=== PATIENT | female | born 1995 | race American Indian/Alaskan Native ===

== ENCOUNTER 2017-07-08 18:39 | Emergency (ER) | payer BC, MEDICAID ==
--- NOTE | 2017-07-08 20:04 | EDM.PDOC ---
ED HPI GENERAL MEDICAL PROBLEM - General Chief Complaint: ENT Problem Stated Complaint: SORE THROAT AND COUGH Time Seen by Provider: 07/08/17 19:30 Source of Information: Reports: Patient History Limitations: Reports: No Limitations - History of Present Illness INITIAL COMMENTS - FREE TEXT/NARRATIVE: This is a 22-year-old female. For the last couple of days or 3 days she's been having a sore throat and a mild cough that seems to be getting worse. She comes to the ER for evaluation. She does have a history of strep throat when she was a child but nothing recent. The cough is fairly nonproductive to seems to be a deep dry tachycardia-type cough. She's had no fever no chills no nausea no vomiting. She denies abdominal pain denies any chest pain and she's had no urinary symptoms. Throat Pain Score (Numeric/FACES): 7 - Related Data Allergies Allergy/AdvReac Type Severity Reaction Status Date / Time amoxicillin [Amoxicillin] Allergy Hives Verified 01/13/14 18:48 Home Meds: Home Meds Azithromycin [Zithromax] 250 mg PO DAILY #6 tablet 07/08/17 [Rx] Past Medical History - Past Health History Medical/Surgical History: Denies Medical/Surgical History Social & Family History - Family History Family Medical History: Noncontributory - Tobacco Use Smoking Status *Q: Never Smoker Second Hand Smoke Exposure: No - Alcohol Use Days Per Week of Alcohol Use: 1 Number of Drinks Per Day: 1 Total Drinks Per Week: 1 - Recreational Drug Use Recreational Drug Use: No ED ROS ENT - Review of Systems Review Of Systems: See Below Constitutional: Denies: Fever, Chills HEENT: Reports: Rhinitis, Throat Pain Respiratory: Reports: Cough. Denies: Shortness of Breath, Wheezing Cardiovascular: Reports: No Symptoms Endocrine: Reports: No Symptoms GI/Abdominal: Reports: No Symptoms : Reports: No Symptoms Musculoskeletal: Reports: No Symptoms Skin: Reports: No Symptoms Neurological: Reports: No Symptoms Psychiatric: Reports: No Symptoms Hematologic/Lymphatic: Reports: No Symptoms ED EXAM, ENT - Physical Exam Exam: See Below Exam Limited By: No Limitations General Appearance: Alert, WD/WN, No Apparent Distress Eye Exam: Bilateral Eye: Normal Inspection Ears: Normal External Exam, Normal Canal, Normal TMs Nose: Normal Inspection, Clear Rhinorrhea, Nasal Discharge Mouth/Throat: Normal Inspection, Tonsillar Erythema, Tonsillar Swelling. No: Tonsillar Exudates Head: Normocephalic Neck: Supple Respiratory/Chest: No Respiratory Distress, Lungs Clear, Normal Breath Sounds Cardiovascular: Regular Rate, Rhythm, No Murmur GI/Abdominal: Soft Back: Full Range of Motion Extremities: Normal Inspection, Normal Range of Motion, Non-Tender Neurological: Alert, Oriented Psychiatric: Normal Affect, Normal Mood Skin: Warm, Dry Course - Vital Signs Last Recorded V/S: Last Vital Signs Temp 97.8 F 07/08/17 19:13 Pulse 101 H 07/08/17 19:13 Resp 16 07/08/17 19:13 BP 118/88 07/08/17 19:13 Pulse Ox 95 07/08/17 19:13 - Orders/Labs/Meds Orders: Active Orders 24 hr Category Date Time Status CULTURE STREP A CONFIRMATION [RM] Stat Lab 07/08/17 19:15 Results STREP SCRN A RAPID W CULT CONF [] Stat Lab 07/08/17 19:15 Results - Re-Assessments/Exams Free Text/Narrative Re-Assessment/Exam: 07/08/17 21:10 I spoke to the mother regarding the negative strep test Departure - Departure Time of Disposition: 21:11 Disposition: Home, Self-Care 01 Condition: Good Clinical Impression: Acute pharyngitis Qualifiers: Pharyngitis/tonsillitis etiology: unspecified etiology Qualified Code(s): J02.9 - Acute pharyngitis, unspecified Acute bronchitis Qualifiers: Bronchitis organism: unspecified organism Qualified Code(s): J20.9 - Acute bronchitis, unspecified - Discharge Information Prescriptions: Azithromycin [Zithromax] 250 mg PO DAILY #6 tablet Forms: ED Department Discharge Additional Instructions: Take the antibiotics faithfully until they're finished, follow-up with your family doctor later this week for recheck, drink lots of fluids. Avoid sodas and sugar since it'll make her sore throat worse, return to the ER if needed - My Orders Last 24 Hours: My Active Orders 07/08/17 19:15 CULTURE STREP A CONFIRMATION [RM] Stat STREP SCRN A RAPID W CULT CONF [RM] Stat - Assessment/Plan Last 24 Hours: My Active Orders 07/08/17 19:15 CULTURE STREP A CONFIRMATION [RM] Stat STREP SCRN A RAPID W CULT CONF [RM] Stat
== END 2017-07-08 21:28 | disposition home or self-care (01) ==
LOC: JD.ED 18:39
DX: J02.9 Acute pharyngitis, unspecified (principal); J20.9 Acute bronchitis, unspecified; Z88.1 Allergy status to other antibiotic agents
CPT/HCPCS: 87081; 87430; 99283

== ENCOUNTER 2017-12-26 22:30 | Emergency (ER) | payer BC ==
[2017-12-26] MEDS ORDERED: Sodium Chloride 0.9% 1,000 ML IV ONE (23:02)
[2017-12-26] MEDS ORDERED: Loperamide 2 MG Cap PO STA (23:02)
[2017-12-26] MEDS ORDERED: Ondansetron 4 MG/2 ML SDV IVPUSH ONE (23:02)
[2017-12-26] MEDS ORDERED: Loperamide 2 MG Cap ONE (23:17)
--- NOTE | 2017-12-26 23:27 | EDM.PDOC ---
ED HPI GENERAL MEDICAL PROBLEM - General Chief Complaint: Gastrointestinal Problem Stated Complaint: vomiting Time Seen by Provider: 12/26/17 22:49 Source of Information: Reports: Patient, Family () History Limitations: Reports: No Limitations - History of Present Illness INITIAL COMMENTS - FREE TEXT/NARRATIVE: The patient states that she developed nausea and watery diarrhea around 02:00 this morning, then emesis at 02;30, 08:15, and 21:00 tonight. She reports body aches and abdominal cramps, and states that she feels feverish, although she has not checked her temperature, and is afebrile here in the ED. She denies any urinary symptoms. No recent lightheadedness. The patient states that she took ibuprofen around noon, but has not taken any other medications since. The patient states that she had some sour cream yesterday that had been left in her car for 1 day, however, others ate the sour cream as well, and none of them are similarly ill. No recent travel. No recent antibiotics. No prior similar symptoms. 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 The patient states that she has a PCP, but does not recall her name. Generalized Pain Score (Numeric/FACES): 7 - Related Data Allergies Allergy/AdvReac Type Severity Reaction Status Date / Time amoxicillin [Amoxicillin] Allergy Hives Verified 12/26/17 22:33 Home Meds: Home Meds Ondansetron [Zofran ODT] 1 tab PO Q8H PRN #10 tab.dis 12/27/17 [Rx] Past Medical History Endocrine/Metabolic History: Reports: Obesity/BMI 30+ - Past Surgical History HEENT Surgical History: Reports: Oral Surgery (Dental surgery as a child) Social & Family History - Family History Family Medical History: Noncontributory - Tobacco Use Smoking Status *Q: Never Smoker Second Hand Smoke Exposure: No - Alcohol Use Alcohol Use History: Yes Days Per Week of Alcohol Use: 1 Number of Drinks Per Day: 1 Total Drinks Per Week: 1 Alcohol Use Frequency: Socially - Recreational Drug Use Recreational Drug Use: No - Living Situation & Occupation Living situation: Reports: , with Spouse, with Family (4 kids) Occupation: Employed (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 ED EXAM, GI/ABD - Physical Exam Exam: See Below Exam Limited By: No Limitations General Appearance: Alert, WD/WN, No Apparent Distress Eyes: Bilateral: Normal Appearance, EOMI Ears: Normal External Exam, Hearing Grossly Normal Nose: Normal Inspection, No Blood Throat/Mouth: Normal Inspection, Normal Lips, Normal Voice, No Airway Compromise Head: Atraumatic, Normocephalic Neck: Normal Inspection, Full Range of Motion Respiratory/Chest: No Respiratory Distress, Lungs Clear, Normal Breath Sounds, No Accessory Muscle Use Cardiovascular: Normal Peripheral Pulses, Regular Rate, Rhythm, No Gallop, No JVD, No Murmur, No Rub GI/Abdominal Exam: Normal Bowel Sounds, Soft, No Organomegaly, No Distention, No Abnormal Bruit, No Mass, Tender (Mild, diffuse/generalized, non-focal), Other (Obese) (Female) Exam: Deferred Rectal (Female) Exam: Deferred Back Exam: Normal Inspection, Full Range of Motion, NT Extremities: Normal Inspection, Normal Range of Motion, No Pedal Edema, Normal Capillary Refill Neurological: Alert, Oriented, Normal Cognition, No Motor/Sensory Deficits Psychiatric: Normal Affect Skin Exam: Warm, Dry, Intact, Normal Color, No Rash Course - Vital Signs Last Recorded V/S: Last Vital Signs Temp 36.7 C 12/26/17 22:33 Pulse 114 H 12/26/17 22:33 Resp 18 12/26/17 22:33 BP 116/73 12/26/17 22:33 Pulse Ox 100 12/26/17 22:33 Orthostatic Blood Pressure [ 104/70 Standing] Orthostatic Blood Pressure [ 116/73 Supine] - Orders/Labs/Meds Orders: Active Orders 24 hr Category Date Time Status CULTURE STOOL + SHIGATOX [RM] Stat Lab 12/26/17 23:51 Ordered HCG QUALITATIVE,URINE [URCHEM] Stat Lab 12/27/17 01:16 Ordered NOROVIRUS, RT-PCR Stat Lab 12/26/17 23:37 Received ROTAVIRUS DIRECT ANTIGEN STOOL [OP] Stat Lab 12/26/17 23:51 COMP UA W/MICROSCOPIC [URIN] Stat Lab 12/27/17 01:16 Ordered WBC, STOOL [OP] Stat Lab 12/26/17 23:51 COMP Labs: Laboratory Tests 12/26/17 12/26/17 12/27/17 Range/Units 22:50 22:50 01:16 WBC 12.12 H (3.98-10.04) K/mm3 RBC 4.90 (3.98-5.22) M/mm3 Hgb 13.7 (11.2-15.7) gm/L Hct 42.9 (34.1-44.9) % MCV 87.6 (79.4-94.8) fl MCH 28.0 (25.6-32.2) pg MCHC 31.9 L (32.2-35.5) g/dl RDW Std Deviation 43.4 (36.4-46.3) fL Plt Count 364 (182-369) K/mm3 MPV 10.4 (9.4-12.3) fl Neutrophils % (Manual) 65 H (40-60) % Band Neutrophils % 0 (0-10) % Lymphocytes % (Manual) 16 L (20-40) % Atypical Lymphs % 0 % Monocytes % (Manual) 3 (2-10) % Eosinophils % (Manual) 16 H (0.7-5.8) % Basophils % (Manual) 0 L (0.1-1.2) Platelet Estimate Adequate RBC Morph Comment Normal Sodium 136 (136-145) mEq/L Potassium 3.3 L (3.5-5.1) mEq/L Chloride 102 (98-107) mEq/L Carbon Dioxide 22 (21-32) mEq/L Anion Gap 15.3 H (5-15) BUN 7 (7-18) mg/dL Creatinine 0.7 (0.55-1.02) mg/dL Est Cr Clr Drug Dosing 130.63 mL/min Estimated GFR (MDRD) > 60 (>60) mL/min BUN/Creatinine Ratio 10.0 L (14-18) Glucose 108 H (74-106) mg/dL Calcium 9.0 (8.5-10.1) mg/dL Magnesium 1.6 L (1.8-2.4) mg/dl Total Bilirubin 0.6 (0.2-1.0) mg/dL AST 24 (15-37) U/L ALT 33 (14-59) U/L Alkaline Phosphatase 166 H (46-116) U/L Total Protein 8.4 H (6.4-8.2) g/dl Albumin 3.7 (3.4-5.0) g/dl Globulin 4.7 gm/dL Albumin/Globulin Ratio 0.8 L (1-2) Lipase 74 (73-393) U/L Urine Color Yellow (Yellow) Urine Appearance Clear (Clear) Urine pH 5.5 (5.0-8.0) Ur Specific Jackson > or = 1.030 (1.005-1.030) Urine Protein Negative (Negative) Urine Glucose (UA) Negative (Negative) Urine Ketones 1+ H (Negative) Urine Occult Blood Negative (Negative) Urine Nitrite Negative (Negative) Urine Bilirubin Negative (Negative) Urine Urobilinogen 0.2 (0.2-1.0) Ur Leukocyte Esterase Negative (Negative) Urine RBC 0-5 (0-5) /hpf Urine WBC 5-10 H (0-5) /hpf Ur Epithelial Cells 5-10 H (0-5) /hpf Urine Bacteria Moderate H (FEW) /hpf Urine Mucus Few (FEW) /hpf Urine HCG, Qual (NEGATIVE) 12/27/17 Range/Units 01:16 WBC (3.98-10.04) K/mm3 RBC (3.98-5.22) M/mm3 Hgb (11.2-15.7) gm/L Hct (34.1-44.9) % MCV (79.4-94.8) fl MCH (25.6-32.2) pg MCHC (32.2-35.5) g/dl RDW Std Deviation (36.4-46.3) fL Plt Count (182-369) K/mm3 MPV (9.4-12.3) fl Neutrophils % (Manual) (40-60) % Band Neutrophils % (0-10) % Lymphocytes % (Manual) (20-40) % Atypical Lymphs % % Monocytes % (Manual) (2-10) % Eosinophils % (Manual) (0.7-5.8) % Basophils % (Manual) (0.1-1.2) Platelet Estimate RBC Morph Comment Sodium (136-145) mEq/L Potassium (3.5-5.1) mEq/L Chloride (98-107) mEq/L Carbon Dioxide (21-32) mEq/L Anion Gap (5-15) BUN (7-18) mg/dL Creatinine (0.55-1.02) mg/dL Est Cr Clr Drug Dosing mL/min Estimated GFR (MDRD) (>60) mL/min BUN/Creatinine Ratio (14-18) Glucose (74-106) mg/dL Calcium (8.5-10.1) mg/dL Magnesium (1.8-2.4) mg/dl Total Bilirubin (0.2-1.0) mg/dL AST (15-37) U/L ALT (14-59) U/L Alkaline Phosphatase (46-116) U/L Total Protein (6.4-8.2) g/dl Albumin (3.4-5.0) g/dl Globulin gm/dL Albumin/Globulin Ratio (1-2) Lipase (73-393) U/L Urine Color (Yellow) Urine Appearance (Clear) Urine pH (5.0-8.0) Ur Specific Jackson (1.005-1.030) Urine Protein (Negative) Urine Glucose (UA) (Negative) Urine Ketones (Negative) Urine Occult Blood (Negative) Urine Nitrite (Negative) Urine Bilirubin (Negative) Urine Urobilinogen (0.2-1.0) Ur Leukocyte Esterase (Negative) Urine RBC (0-5) /hpf Urine WBC (0-5) /hpf Ur Epithelial Cells (0-5) /hpf Urine Bacteria (FEW) /hpf Urine Mucus (FEW) /hpf Urine HCG, Qual Negative (NEGATIVE) Meds: Medications Discontinued Medications Generic Name Dose Route Start Last Admin Trade Name Freq PRN Reason Stop Dose Admin Sodium Chloride 1,000 mls @ 999 mls/hr 12/26/17 23:02 12/26/17 23:12 Normal Saline IV 12/27/17 00:02 999 mls/hr ONETIME ONE Administration Magnesium Sulfate 2 gm/ Premix 50 mls @ 50 mls/hr 12/26/17 23:46 12/26/17 23: 55 IV 12/27/17 00:45 50 mls/hr ONETIME ONE Administration Loperamide HCl 4 mg 12/26/17 23:02 12/26/17 23:12 Imodium PO 12/26/17 23:03 4 mg ONETIME STA Administration Loperamide HCl Confirm 12/26/17 23:17 12/26/17 23:56 Imodium Administered 12/26/17 23:18 Not Given Dose 2 mg .ROUTE .STK-MED ONE Ondansetron HCl 4 mg 12/26/17 23:02 12/26/17 23:12 Zofran IVPUSH 12/26/17 23:03 4 mg ONETIME ONE Administration - Re-Assessments/Exams Free Text/Narrative Re-Assessment/Exam: 12/26/17 23:47 The patient was able to provide a stool sample. I have ordered a stool for rotavirus, WBCs, culture, and nor virus. The patient's magnesium level returned low at 1.6. I have ordered a 2 g Mg- rider. 12/27/17 02:17 Test results discussed with the patient and her . As above, the patient' s magnesium level was found to be modestly depressed. She received IV magnesium. 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 I will discharge her home with an e-prescription for Zofran, and recommend that she continue to take over-the- counter loperamide as needed for diarrhea. I am advising that she avoid sugars in her diet, as rotavirus leads to decreased intestinal enzymes that break down dietary sugars, leading to oncotic diarrhea. I will refer her to Dr. Stein for follow-up. The patient stated that she does not work again until 01/01/2018, but asked if I would write a note for work for a couple of days at that time. Has that is not for another 5 days from now, and the patient's symptoms will likely have resolved by then, I did not feel it appropriate that I write a work for note that far out. If the patient needs a note around that time, she should discuss that with Dr. Stein. Departure - Departure Time of Disposition: 02:20 Disposition: Home, Self-Care 01 Condition: Fair Clinical Impression: Rotavirus enteritis - Discharge Information Prescriptions: Ondansetron [Zofran ODT] 1 tab PO Q8H PRN #10 tab.dis PRN Reason: Nausea/Vomiting Instructions: Rotavirus Infection, Adult Referrals: PCP,None [Primary Care Provider] - Isa Stein MD [Physician] - Forms: ED Department Discharge Additional Instructions: You were seen in the emergency room for nausea, vomiting, and watery diarrhea. Workup in the ER included blood work, a urinalysis, a urine test, and stool studies. Your bloodwork found that your magnesium level was modestly low. You were given IV magnesium replacement. 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 Unfortunately, there are no medicines to get rid of rotavirus - it will have to run its course. A prescription for the anti-nausea medicine Zofran has been sent to the [facility]. Dissolve one tablet of Zofran on your tongue up to every 8 hours, as needed for nausea/vomiting. Take [id number] Imodium (loperamide), one tablet (2 mg) after each loose bowel movement, to a maximum of 8 tablets within a 24-hour period. Stay adequately hydrated, but try to avoid foods and drinks with sugar in them, as sugar may worsen your diarrhea. Follow-up with Dr. Isa Stein in the clinic as needed. If any other problems, please do not hesitate to return to the ER. - My Orders Last 24 Hours: My Active Orders 12/26/17 23:37 NOROVIRUS, RT-PCR Stat 12/26/17 23:51 CULTURE STOOL + SHIGATOX [RM] Stat ROTAVIRUS DIRECT ANTIGEN STOOL [OP] Stat WBC, STOOL [OP] Stat 12/27/17 01:16 HCG QUALITATIVE,URINE [URCHEM] Stat UA W/MICROSCOPIC [URIN] Stat - Assessment/Plan Last 24 Hours: My Active Orders 12/26/17 23:37 NOROVIRUS, RT-PCR Stat 12/26/17 23:51 CULTURE STOOL + SHIGATOX [RM] Stat ROTAVIRUS DIRECT ANTIGEN STOOL [OP] Stat WBC, STOOL [OP] Stat 12/27/17 01:16 HCG QUALITATIVE,URINE [URCHEM] Stat UA W/MICROSCOPIC [URIN] Stat
[2017-12-26] MEDS ORDERED: Magnesium Sulfate/Water 2 GM in Premix Bag 1 BAG IV ONE (23:46)
== END 2017-12-27 02:30 | disposition home or self-care (01) ==
LOC: JD.ED 22:30
DX: K52.1 Toxic gastroenteritis and colitis (principal); T50.B95A Adverse effect of other viral vaccines, initial encounter; Z88.1 Allergy status to other antibiotic agents
CPT/HCPCS: 36415; 80053; 81001; 81025; 83690; 83735; 85025; 87046; 87425; 87798; 89055; 96361; 96365; 96375; 99284; A9270; J2405; J7040; 87427; J3475

== ENCOUNTER 2024-04-24 19:12 | Emergency (ER) | payer BC ==
[2024-04-24] MEDS ORDERED: Sodium Chloride 0.9% 10 ML Syringe FLUSH PRN (19:30)
[2024-04-24] MEDS ORDERED: Sodium Chloride 0.9% 1,000 ML IV SCH (19:30)
[2024-04-24] MEDS: Ondansetron 4 MG/2 ML SDV IVPUSH ONE (19:56)
[2024-04-24] MEDS: Sodium Chloride 0.9% 1,000 ML IV ONE (19:56)
[2024-04-24 20:00] LABS: BASOPHILS ABSOLUTE AUTO 0.1 K/mm3 (0.0-0.2); BASOPHILS PERCENT AUTO 0.5 % (0.0-1.0); EOSINOPHILS ABSOLUTE AUTO 0.3 K/mm3 (0.0-0.4); EOSINOPHILS PERCENT AUTO 2.8 % (0.0-6.0); HEMATOCRIT 37.6 % (37.0-47.0); HEMOGLOBIN 11.8 gm/dl (12.0-16.0); IMMATURE GRAN ABSOLUTE AUTO 0.02 K/mm3 (0.00-0.05); IMMATURE GRAN PERCENT AUTO 0.2 % (0.0-0.4); LYMPHOCYTES PERCENT AUTO 25.9 % (24.0-44.0); MEAN CORPUSCULAR HEMOGLOBIN 27.1 pg (28.0-32.0); MEAN CORPUSCULAR HGB CONC 31.4 g/dl (32.0-36.0); MEAN CORPUSCULAR VOLUME 86.2 fl (83.0-99.0); MEAN PLATELET VOLUME 9.5 fl (9.4-12.3); MONOCYTES ABSOLUTE AUTO 0.9 K/mm3 (0.0-0.8); MONOCYTES PERCENT AUTO 7.5 % (0.0-8.0); NEUTROPHILS ABSOLUTE AUTO 7.4 K/mm3 (1.8-7.7); NEUTROPHILS PERCENT AUTO 63.1 % (41.0-71.0); PLATELET COUNT,PLT 417 K/mm3 (150-400); RED BLOOD CELL COUNT 4.36 M/mm3 (4.10-5.30); WHITE BLOOD CELL COUNT,WBC 11.68 K/mm3 (3.9-11.3)
[2024-04-24 20:24] LABS: A/G RATIO 0.7 (1-2); ALBUMIN 3.1 g/dl (3.4-5.0); ANION GAP 11.5 (5-15); BILIRUBIN TOTAL 0.3 mg/dL (0.2-1.0); C-REACTIVE PROTEIN 0.94 mg/dL (<0.30); CALCIUM 8.9 mg/dL (8.5-10.1); CREATININE 0.8 mg/dL (0.55-1.02); EST CRCL DRUG DOSING (CG) 111.19 mL/min; MAGNESIUM 1.9 mg/dL (1.8-2.4); POTASSIUM,K 3.5 mEq/L (3.5-5.1); PROTEIN TOTAL,TP 7.3 g/dl (6.4-8.2)
[2024-04-24] MEDS: Sodium Chloride 0.9% 500 ML IV ONE (22:31)
[2024-04-24] MEDS: Alum Hydrox/Mag Hydrox/Simeth 30 ML, Lidocaine 2% 15 ML PO ONE (22:38)
[2024-04-24] MEDS: Aspirin 81 MG Tab.Chew PO ONE (22:38)
[2024-04-24 23:54] LABS: APPEARANCE,URINE CLEAR (Clear); BILIRUBIN,URINE NEGATIVE (Negative); COLOR,URINE YELLOW (Yellow); GLUCOSE,URINE NEGATIVE (Negative); KETONES,URINE NEGATIVE (Negative); LEUKOCYTE ESTERASE,URINE NEGATIVE (Negative); NITRITE,URINE NEGATIVE (Negative); OCCULT BLOOD,URINE NEGATIVE (Negative); PROTEIN,URINE NEGATIVE (Negative); UROBILINOGEN,URINE 0.2 (0.2-1.0)
[2024-04-25 00:43] LABS: CORONAVIRUS COVID-19 NAA NEGATIVE (NEGATIVE); INFLUENZA A NAA NEGATIVE (NEGATIVE); RESPIRATORY SYNCYTIAL VIR NAA NEGATIVE (NEGATIVE)
[2024-04-25 00:53] LABS: BACTERIA,URINE FEW /hpf (FEW); EPITHELIAL CELLS,URINE 0-5 /hpf (0-5); MUCUS,URINE MODERATE /hpf (FEW); RBC,URINE 0-5 /hpf (0-5); WBC,URINE 0-5 /hpf (0-5)
== END 2024-04-25 01:22 | disposition home or self-care (01) ==
LOC: JD.ED 19:12
DX: K21.00 Gastro-esophageal reflux disease with esophagitis, without bleeding (principal); E66.9 Obesity, unspecified; Z68.42 Body mass index [BMI] 45.0-49.9, adult
CPT/HCPCS: 0241U; 36415; 71045; 71045-26; 76700; 76700-26; 80053; 81001; 83690; 83735; 84484; 84703; 85025; 85379; 86140; 93005; 93010; 96374; 99284; 99285-25; A9270-GY; J2405; J7030